=== PATIENT | female | born 1990 | race American Indian/Alaskan Native ===

== ENCOUNTER 2022-06-10 16:33 | Emergency (ER) | payer OTHER ==
[2022-06-10 18:38] LABS: Blood Urea Nitrogen 10 mg/dL (7-17); Calcium 9.9 mg/dL (8.4-10.2); Hemolysis Index 16
[2022-06-10 18:39] LABS: BUN/Creatinine Ratio 14
[2022-06-10 19:19] LABS: Basophils # (Auto) 0.1 K/mm3 (0.0-0.1); Basophils % (Auto) 0.6 % (0.0-1.8); Eosinophils # (Auto) 0.1 K/mm3 (0.0-0.4); Hematocrit 42.5 % (30.3-42.9); Hemoglobin 13.5 gm/dl (10.1-14.3); Lymphocytes # (Auto) 2.5 K/mm3 (1.2-5.4); Lymphocytes % (Auto) 26.8 % (13.4-35.0); Mean Corpuscular HGB Conc 32 % (30-34); Mean Corpuscular Volume 85 fl (79-97); Monocytes # (Auto) 0.6 K/mm3 (0.0-0.8); Monocytes % (Auto) 6.4 % (0.0-7.3); Platelet Count 285 K/mm3 (140-440); Red Blood Count 4.99 M/mm3 (3.65-5.03); Red Cell Distribution Width 15.5 % (13.2-15.2)
[2022-06-10 23:41] LABS: RBC,Urine < 1.0 /HPF (0.0-6.0)
[2022-06-10 23:57] LABS: Color,Urine Yellow (Yellow)
--- NOTE | 2022-06-11 02:46 | Ultrasound Report ---
US OB <= 14 weeks fetus INDICATION / CLINICAL INFORMATION: VAGINAL BLEEDING, COMPARISON: None available. TECHNIQUE: Using a transcutaneous probe, multiple grayscale, color Doppler, and spectral Doppler imag es of the uterus and fetus were captured and stored. FINDINGS: Uterus measures 12.6 x 5.5 x 5.65 cm. A single intrauterine gestational sac is demonstrated with mean gestational sac size of 30.6 mm, mean crown-rump length of 9.9 mm, and composite estimated gestation al age at 7 weeks 5 days. EDC 01/23/2023. Clinical estimate gestational age based on LMP of 04/14/2022 is 8 weeks 2 days. Normal sac and pole. Within normal limits. A small rim of fluid around the margin of the sac is demonstrated measuring up to 2 mm in thickness. The right ovary measures 3.1 x 2.3 x 2.3 cm. Small cyst is demonstrated measuring up to 1.7 mm. Right ovary otherwise unremarkable. Left ovary measures 2.9 x 1.7 x 1.8 cm. Left ovary is unremarkable. IMPRESSION: 1. Single living intrauterine gestation as detailed. 2. A thin rim of fluid around the sac margin compatible with subchorionic hemorrhage is demonstrated. Signer Name: Rommel Carrasco II, MD Signed: 06/11/2022 2:42 AM Workstation Name: [id number]
--- NOTE | 2022-06-11 03:15 | Emergency Department Report ---
ED Female HPI - General Chief complaint: Vaginal Bleeding Stated complaint: 6-8WKS /VAGINAL BLEEDING Source: patient Mode of arrival: Ambulatory Limitations: No Limitations - History of Present Illness Initial comments: Patient is a A0 32-year-old -[place] female who is approximately 7 to 8 weeks gestation presents to the ED with complaint of acute onset persistent heavy vaginal bleeding for the last 24 hours. Patient states that the bleeding has worsened in the last 8 hours. Patient denies abdominal pain, dysuria, urinary frequency and urgency, chest pain, shortness of breath, headache, lightheadedness, dizziness or syncope, cough, fever, chills or vaginal discharge. MD Complaint: vaginal bleeding, other (approximately ) - Related Data Allergies Allergy/AdvReac Type Severity Reaction Status Date / Time No Known Allergies Allergy Unverified 06/10/22 17:17 ED Review of Systems ROS: Stated complaint: 6-8WKS /VAGINAL BLEEDING Other details as noted in HPI Constitutional: denies: chills, fever Eyes: denies: eye pain, eye discharge, vision change ENT: denies: ear pain, throat pain Respiratory: denies: cough, shortness of breath, wheezing Cardiovascular: denies: chest pain, palpitations Endocrine: no symptoms reported Gastrointestinal: denies: abdominal pain, nausea, vomiting, diarrhea Genitourinary: abnormal menses (Vaginal bleeding). denies: urgency, dysuria, frequency, hematuria, discharge Musculoskeletal: denies: back pain, joint swelling, arthralgia Skin: denies: rash, lesions Neurological: denies: headache, weakness, paresthesias Psychiatric: denies: anxiety, depression Hematological/Lymphatic: denies: easy bleeding, easy bruising ED Past Medical Hx - Past Medical History Previous Medical History?: No - Surgical History Past Surgical History?: No ED Physical Exam - General Limitations: No Limitations General appearance: alert, in no apparent distress - Head Head exam: Present: atraumatic, normocephalic, normal inspection - Eye Eye exam: Present: normal appearance, PERRL, EOMI Pupils: Present: normal accommodation - ENT ENT exam: Present: normal exam, normal orophraynx, mucous membranes moist, TM's normal bilaterally, normal external ear exam - Neck Neck exam: Present: normal inspection, full ROM. Absent: tenderness - Respiratory Respiratory exam: Present: normal lung sounds bilaterally. Absent: respiratory distress, wheezes, rhonchi, stridor, chest wall tenderness, accessory muscle use, decreased breath sounds, prolonged expiratory - Cardiovascular Cardiovascular Exam: Present: regular rate, normal rhythm, normal heart sounds. Absent: systolic murmur, diastolic murmur, rubs, gallop - GI/Abdominal GI/Abdominal exam: Present: soft, normal bowel sounds. Absent: tenderness, guarding, rebound, hyperactive bowel sounds, hypoactive bowel sounds, organomegaly, mass, bruit - Bi-manual exam: Present: other (Pelvic exam deferred at this time) - Extremities Exam Extremities exam: Present: normal inspection, full ROM, normal capillary refill. Absent: tenderness, pedal edema, joint swelling, calf tenderness - Back Exam Back exam: Present: normal inspection, full ROM. Absent: tenderness, CVA tenderness (R), CVA tenderness (L), muscle spasm, paraspinal tenderness - Neurological Exam Neurological exam: Present: alert, oriented X3, CN II-XII intact, normal gait, reflexes normal - Psychiatric Psychiatric exam: Present: normal affect, normal mood - Skin Skin exam: Present: warm, dry, intact, normal color. Absent: rash ED Course Vital Signs 06/10/22 17:15 Temperature 98.5 F Pulse Rate 82 Respiratory 18 Rate Blood Pressure 132/93 [Left] O2 Sat by Pulse 99 Oximetry ED Medical Decision Making - Lab Data Result diagrams: 06/10/22 18:12 06/10/22 18:12 - Radiology Data Radiology results: report reviewed, image reviewed [facility] [address] [place] [address] Ultrasound Report Signed Patient: UMAIR DACOSTA MR#: [id number] : 1990 Acct:[id number] Age/Sex: 32 / F ADM Date: 06/10/22 Loc: ED Attending Dr: Ordering Physician: AARON MANCILLA Date of Service: 06/10/22 Procedure(s): US OB <= 14 weeks fetus Accession Number(s): [id number] cc: AARON MANCILLA US OB <= 14 weeks fetus INDICATION / CLINICAL INFORMATION: VAGINAL BLEEDING, COMPARISON: None available. TECHNIQUE: Using a transcutaneous probe, multiple grayscale, color Doppler, and spectral Doppler images of the uterus and fetus were captured and stored. FINDINGS: Uterus measures 12.6 x 5.5 x 5.65 cm. A single intrauterine gestational sac is demonstrated with mean gestational sac size of 30.6 mm, mean crown-rump length of 9.9 mm, and composite estimated gestational age at 7 weeks 5 days. EDC 01/23/2023. Clinical estimate gestational age based on LMP of 04/14/2022 is 8 weeks 2 days. Normal sac and pole. Within normal limits. A small rim of fluid around the margin of the sac is demonstrated measuring up to 2 mm in thickness. The right ovary measures 3.1 x 2.3 x 2.3 cm. Small cyst is demonstrated measuring up to 1.7 mm. Right ovary otherwise unremarkable. Left ovary measures 2.9 x 1.7 x 1.8 cm. Left ovary is unremarkable. IMPRESSION: 1. Single living intrauterine gestation as detailed. 2. A thin rim of fluid around the sac margin compatible with subchorionic hemorrhage is demonstrated. Signer Name: Alex Bazan II, MD Signed: 06/11/2022 2:42 AM Workstation Name: [id number] Transcribed By: SHYLA Dictated By: ALEX BAZAN II, MD Electronically Authenticated By: ALEX BAZAN II, MD Signed Date/Time: 06/11/22241 DD/ 0239 TD/TT: - Medical Decision Making This is a A0 32-year-old -[place] female who is approximately 7 to 8 weeks gestation presents to the ED with complaint of acute onset persistent heavy vaginal bleeding for the last 24 hours. Patient states that the bleeding has worsened in the last 8 hours. In the ED, patient is alert and oriented x3 and is not in any distress. Lab test results were reviewed and are [place] [id number]. Transvaginal ultrasound showed a single live intrauterine of approximately 7 weeks and 5 days with a heart rate of 137 bpm. Patient was discharged home and advised to maintain a call. Pelvic rest with no lifting or strenuous physical activities or sexual activity and to follow-up with her GENERAL [employer]PERVISOR physician in 5 to 7 days for reevaluation. Patient was advised return to the ED immediately if symptoms get worse. - Differential Diagnosis Threatened miscarriage; subchorionic bleed; UTI; ectopic ; Critical care attestation.: If time is entered above; I have spent that time in minutes in the direct care of this critically ill patient, excluding procedure time. ED Disposition Clinical Impression: Threatened miscarriage in early , Vaginal bleeding in patient after first trimester Disposition: 01 HOME / SELF CARE / HOMELESS Is pt being admited?: No Does the pt Need Aspirin: No Condition: Stable Instructions: Threatened Miscarriage, [id number], Vaginal Bleeding During P regnancy, First Trimester, [id number] Additional Instructions: All lab test results were reviewed and are all nonactionable. Transvaginal ultrasound showed a single live intrauterine of approximately 7 weeks and 5 days and with a heart rate of 137 beats a minute. Therefore maintain a complete pelvic rest devoid of any strenuous physical exercises or ac tivities such as heavy lifting or sexual activity. Follow-up with your GENERAL SUPERVISOR physician in 5 to 7 days for reevaluation. Return to the ED immediately if symptoms get worse. Referrals: PRERNA HONEYCUTT MD [Staff Physician] - 3-5 Days Time of Disposition: 03:14 Print Language: BELARUSIAN
[2022-06-11 03:53] VITALS: BP 127/91
== END 2022-06-11 03:53 | disposition home or self-care (01) ==
LOC: ED 16:33
DX: O20.0 Threatened abortion (principal); Z3A.01 Less than 8 weeks gestation of pregnancy
CPT/HCPCS: 36415; 76801; 80048; 81001; 84702; 85025; 86900; 86901; 99284